=== PATIENT | female | born 1940 | race Caucasian/White ===

== ENCOUNTER 2020-10-31 02:38 | Inpatient (IN) | payer MEDICAID ==
[2020-10-31] VITALS (17 sets, daily range): BP systolic 90–184; BP diastolic 30–138
[~2020-10-31] VITALS: Ht 142.2 cm; Wt 69.9 kg
[2020-10-31] MEDS ORDERED: ONDANSETRON HCL 4MG/2ML INJ IV STA (02:50)
[2020-10-31] MEDS ORDERED: ALBUTEROL (0.083%) 2.5MG/3ML NEB HHN STA (02:50)
[2020-10-31] MEDS ORDERED: IPRATROPIUM BROMIDE (0.02%) 0.5MG/2.5ML NEB HHN STA (02:50)
[2020-10-31] MEDS ORDERED: AMIODARONE HCL 150 MG in DEXT 5% WATER 100 ML IV ONE (03:00)
[2020-10-31] MEDS ORDERED: NITROGLYCERIN OINT 1GM/INCH UDPKT TD ONE (03:00)
[2020-10-31] MEDS ORDERED: FUROSEMIDE 40MG/4ML VIAL IV ONE (03:00)
[2020-10-31] MEDS ORDERED: AMIODARONE HCL 900 MG in DEXT 5% WATER 500 ML IV ONE (03:00)
[2020-10-31 03:29] LABS: HEMATOCRIT. 40.1 % (36.0-48.0); HEMOGLOBIN. 12.5 g/dL (12.0-16.0); MEAN CORPUSCULAR HEMOGLOBIN 24.3 pg (28.0-32.0); PLATELET 237 x1000/uL (130-400); RED BLOOD CELL COUNT 5.14 mill/uL (4.2-5.4)
[2020-10-31 03:35] LABS: INR 1.1; PROTHROMBIN TIME 12.2 sec (9.6-11.0)
[2020-10-31 03:41] LABS: CHLORIDE 106 mEq/L (98-107)
[2020-10-31 03:47] LABS: BG CARBOXYHEMOGLOBIN 0.6 % (0.5-1.5); BG DEOXYHEMOGLOBIN 1.4 % (0.0-5.0); BG FRACTION INSPIRED OXYGEN 50; BG HCO3 ACT 18.3 mmol/L (22.0-26.0); BG METHEMOGLOBIN 0.3 % (0.0-1.5); BG OXYGEN SATURATION 98.6 % (92.0-98.5); BG OXYHEMOGLOBIN 97.7 % (94.0-97.0); BG PCO2 28.8 mmHg (35.0-45.0); BG PO2 216.8 mmHg (75.0-100.0); BG SAMPLE SITE RIGHT RADIAL; BG TOTAL HEMOGLOBIN 11.8 g/dL (12.0-18.0); BG VENT MODE MASK - BIPAP
[2020-10-31 05:03] LABS: PLATELET ESTIMATE NORMAL
[2020-10-31] MEDS ORDERED: ONDANSETRON HCL 4MG/2ML INJ IV PRN (08:15)
[2020-10-31] MEDS ORDERED: ACETAMINOPHEN 325MG TABLET PO PRN (08:15)
[2020-10-31] MEDS: FUROSEMIDE 40MG/4ML VIAL IVP SCH (09:00)
[2020-10-31] MEDS: ENOXAPARIN 100MG/ML SYR SUBCUT SCH ×2 (11:49→22:53)
[2020-10-31 14:57] LABS: CHLORIDE 107 mEq/L (98-107)
[2020-10-31 15:07] LABS: T4 FREE 1.25 ng/dL (0.76-1.46)
[2020-10-31] MEDS ORDERED: AMIODARONE HCL 900 MG in DEXT 5% WATER 482 ML IV PRN (17:30)
[2020-10-31] MEDS ORDERED: HYDRALAZINE 20MG/ML VIAL IV PRN (22:30)
[2020-10-31 23:50] LABS: CLARITY URINE CLOUDY (CLEAR); COLOR URINE YELLOW (YELLOW); KETONES URINE NEGATIVE (NEGATIVE); LEUKOCYTE ESTERASE URINE 1+ (NEGATIVE); NITRITE URINE NEGATIVE (NEGATIVE); OCCULT BLOOD URINE TRACE (NEGATIVE); PH URINE 5.5 (4.5-8.0); PROTEIN URINE 1+ (NEGATIVE); SPECIFIC GRAVITY URINE 1.019 (1.005-1.030)
[2020-11-01] VITALS (26 sets, daily range): BP systolic 72–177; BP diastolic 35–129
[2020-11-01] MEDS: LORAZEPAM 2MG/ML CPJ IV PRN (06:20)
[2020-11-01 07:37] LABS: HEMATOCRIT. 31.4 % (36.0-48.0); MEAN CORPUSCULAR HEMOGLOBIN 24.5 pg (28.0-32.0); MEAN CORPUSCULAR VOLUME 76.6 fL (81.0-99.0); MEAN PLATELET VOLUME 8.9 fl (7.4-10.4); PLATELET 200 x1000/uL (130-400); RED CELL DISTRIBUTION WIDTH 24.1 % (11.6-14.6)
[2020-11-01] MEDS ORDERED: IPRATROPIUM BROMIDE (0.02%) 0.5MG/2.5ML NEB HHN PRN (07:45)
[2020-11-01 08:35] LABS: CHLORIDE 111 mEq/L (98-107)
[2020-11-01] MEDS: METOPROLOL TARTRATE 50MG TABLET PO SCH ×2 (09:00→21:00)
[2020-11-01] MEDS: FUROSEMIDE 40MG/4ML VIAL IVP SCH (09:03)
[2020-11-01] MEDS: AMLODIPINE 10MG TABLET PO SCH (09:05)
[2020-11-01] MEDS: CEFEPIME 2,000 MG in DEXT 5% WATER 100 ML IV SCH ×2 (09:15→20:45)
[2020-11-01 13:50] LABS: PLATELET ESTIMATE NORMAL
[2020-11-01] MEDS: ENOXAPARIN 100MG/ML SYR SUBCUT SCH ×2 (15:03→23:13)
[2020-11-01] MEDS ORDERED: LORAZEPAM 2MG/ML CPJ IV PRN (20:15)
[2020-11-01] MEDS: ATORVASTATIN CALCIUM 20MG TABLET PO SCH (21:00)
[2020-11-01] MEDS: IPRATROPIUM BROMIDE (0.02%) 0.5MG/2.5ML NEB HHN SCH (21:30)
[2020-11-02] VITALS (17 sets, daily range): BP systolic 100–164; BP diastolic 47–93
[2020-11-02] MEDS: IPRATROPIUM BROMIDE (0.02%) 0.5MG/2.5ML NEB HHN SCH ×4 (01:24→20:11)
[2020-11-02 05:41] LABS: CHLORIDE 106 mEq/L (98-107)
[2020-11-02 05:51] LABS: HEMATOCRIT. 34.4 % (36.0-48.0); HEMOGLOBIN. 11.1 g/dL (12.0-16.0); MEAN CORPUSCULAR HEMOGLOBIN 24.8 pg (28.0-32.0); MEAN PLATELET VOLUME 9.3 fl (7.4-10.4); PLATELET 206 x1000/uL (130-400); RED BLOOD CELL COUNT 4.46 mill/uL (4.2-5.4); RED CELL DISTRIBUTION WIDTH 23.5 % (11.6-14.6)
[2020-11-02] MEDS: METOPROLOL TARTRATE 50MG TABLET PO SCH ×2 (09:00→21:28)
[2020-11-02] MEDS: AMLODIPINE 10MG TABLET PO SCH (09:06)
[2020-11-02] MEDS: CEFEPIME 2,000 MG in DEXT 5% WATER 100 ML IV SCH ×2 (09:06→22:21)
[2020-11-02] MEDS: FUROSEMIDE 40MG/4ML VIAL IVP SCH (09:06)
[2020-11-02] MEDS: ENOXAPARIN 100MG/ML SYR SUBCUT SCH (11:37)
[2020-11-02] MEDS ORDERED: REGADENOSON 0.4 MG/5 ML IV SCH (12:00)
[2020-11-02 12:13] LABS: BG CARBOXYHEMOGLOBIN 1.3 % (0.5-1.5); BG DEOXYHEMOGLOBIN 7.9 % (0.0-5.0); BG FRACTION INSPIRED OXYGEN 21; BG HCO3 ACT 23.8 mmol/L (22.0-26.0); BG METHEMOGLOBIN 0.3 % (0.0-1.5); BG OXYHEMOGLOBIN 90.5 % (94.0-97.0); BG PCO2 40.1 mmHg (35.0-45.0); BG PH 7.392 (7.350-7.450); BG PO2 65.1 mmHg (75.0-100.0); BG SAMPLE SITE RIGHT RADIAL; BG TOTAL HEMOGLOBIN 11.1 g/dL (12.0-18.0); BG VENT MODE ROOM AIR
[2020-11-02] MEDS: AMIODARONE HCL 200 MG TABLET PO SCH (13:09)
[2020-11-02] MEDS: ASPIRIN 81MG TABLET PO SCH (13:10)
[2020-11-02 13:27] LABS: PLATELET ESTIMATE NORMAL
[2020-11-02] MEDS: ATORVASTATIN CALCIUM 20MG TABLET PO SCH (21:28)
[2020-11-03] VITALS: BP 105/44
[2020-11-03] MEDS: IPRATROPIUM BROMIDE (0.02%) 0.5MG/2.5ML NEB HHN SCH ×4 (01:40→21:28)
[2020-11-03 04:00] VITALS: BP 119/61
[2020-11-03 08:00] VITALS: BP 129/52
[2020-11-03 08:09] LABS: BASOPHILS % 0.2 % (0.0-2.0); EOSINOPHILS % 0.7 % (0.0-5.0); HEMATOCRIT. 33.1 % (36.0-48.0); HEMOGLOBIN. 10.7 g/dL (12.0-16.0); LYMPHOCYTES % 8.5 % (20.0-50.0); MEAN CORPUSCULAR VOLUME 77.3 fL (81.0-99.0); MEAN PLATELET VOLUME 9.3 fl (7.4-10.4); MONOCYTES % 8.3 % (2.0-8.0); NEUTROPHILS % 82.3 % (40.0-76.0); PLATELET 226 x1000/uL (130-400); RED BLOOD CELL COUNT 4.29 mill/uL (4.2-5.4); RED CELL DISTRIBUTION WIDTH 22.9 % (11.6-14.6)
[2020-11-03 08:29] LABS: CHLORIDE 104 mEq/L (98-107)
[2020-11-03] MEDS ORDERED: ENOXAPARIN 40MG/0.4ML SYR SUBCUT SCH (09:00)
[2020-11-03] MEDS: CEFEPIME 2,000 MG in DEXT 5% WATER 100 ML IV SCH ×2 (09:00→20:55)
[2020-11-03] MEDS ORDERED: REGADENOSON 0.4 MG/5 ML IV ONE (10:15)
[2020-11-03] MEDS: METOPROLOL TARTRATE 50MG TABLET PO SCH (12:59)
[2020-11-03] MEDS: AMIODARONE HCL 200 MG TABLET PO SCH (12:59)
[2020-11-03] MEDS: FUROSEMIDE 40MG/4ML VIAL IVP SCH (12:59)
[2020-11-03] MEDS: ASPIRIN 81MG TABLET PO SCH (12:59)
[2020-11-03] MEDS: AMLODIPINE 10MG TABLET PO SCH (12:59)
[2020-11-03] MEDS: APIXABAN 5 MG TABLET PO SCH (17:00)
[2020-11-03 20:00] VITALS: BP 140/63
[2020-11-03] MEDS: ATORVASTATIN CALCIUM 20MG TABLET PO SCH (20:54)
[2020-11-03] MEDS: METOPROLOL TARTRATE 25MG TABLET PO SCH (20:55)
[2020-11-03] MEDS ORDERED: NA PHOS,M-B/NA PHOS,DI-BA ENEMA 118ML PR PRN (22:45)
[2020-11-04] VITALS: BP 126/35
[2020-11-04] MEDS: LORAZEPAM 2MG/ML CPJ IV PRN ×3 (01:08→21:13)
[2020-11-04] MEDS: IPRATROPIUM BROMIDE (0.02%) 0.5MG/2.5ML NEB HHN SCH ×4 (03:05→21:54)
[2020-11-04 04:00] VITALS: BP 118/57
[2020-11-04 06:51] LABS: BASOPHILS % 0.3 % (0.0-2.0); HEMATOCRIT. 31.5 % (36.0-48.0); HEMOGLOBIN. 10.1 g/dL (12.0-16.0); LYMPHOCYTES % 11.6 % (20.0-50.0); MEAN CORPUSCULAR HEMOGLOBIN 24.8 pg (28.0-32.0); MEAN CORPUSCULAR VOLUME 77.7 fL (81.0-99.0); MEAN PLATELET VOLUME 8.4 fl (7.4-10.4); MONOCYTES % 11.2 % (2.0-8.0); NEUTROPHILS % 75.9 % (40.0-76.0); PLATELET 211 x1000/uL (130-400); RED BLOOD CELL COUNT 4.06 mill/uL (4.2-5.4); RED CELL DISTRIBUTION WIDTH 22.7 % (11.6-14.6)
[2020-11-04 07:22] LABS: CHLORIDE 109 mEq/L (98-107)
[2020-11-04 08:00] VITALS: BP 123/51
[2020-11-04] MEDS: METOPROLOL TARTRATE 25MG TABLET PO SCH ×2 (11:01→21:04)
[2020-11-04] MEDS: FUROSEMIDE 40MG/4ML VIAL IVP SCH (11:01)
[2020-11-04] MEDS: AMIODARONE HCL 200 MG TABLET PO SCH (11:01)
[2020-11-04] MEDS: DOCUSATE SODIUM 250MG CAPSULE PO SCH ×2 (11:01→17:09)
[2020-11-04] MEDS: CEFEPIME 2,000 MG in DEXT 5% WATER 100 ML IV SCH (11:01)
[2020-11-04] MEDS: ASPIRIN 81MG TABLET PO SCH (11:01)
[2020-11-04] MEDS: AMLODIPINE 10MG TABLET PO SCH (11:02)
[2020-11-04] MEDS: APIXABAN 5 MG TABLET PO SCH ×2 (11:02→17:09)
[2020-11-04 12:12] VITALS: BP 110/49
[2020-11-04 16:00] VITALS: BP 118/59
[2020-11-04 20:32] VITALS: BP 131/63
[2020-11-04] MEDS: CEFTRIAXONE 1,000 MG in DEXTROSE 5% WATER 50 ML IV SCH (21:01)
[2020-11-04] MEDS: ATORVASTATIN CALCIUM 20MG TABLET PO SCH (21:02)
[2020-11-05] VITALS: BP 146/78
[2020-11-05] MEDS: IPRATROPIUM BROMIDE (0.02%) 0.5MG/2.5ML NEB HHN SCH ×4 (03:43→21:08)
[2020-11-05 04:00] VITALS: BP 136/64
[2020-11-05 07:50] VITALS: BP 162/76
[2020-11-05 08:16] LABS: BASOPHILS % 0.3 % (0.0-2.0); EOSINOPHILS % 1.7 % (0.0-5.0); HEMATOCRIT. 34.3 % (36.0-48.0); HEMOGLOBIN. 10.7 g/dL (12.0-16.0); LYMPHOCYTES % 12.4 % (20.0-50.0); MEAN CORPUSCULAR HEMOGLOBIN 24.5 pg (28.0-32.0); MEAN CORPUSCULAR VOLUME 78.8 fL (81.0-99.0); MEAN PLATELET VOLUME 8.5 fl (7.4-10.4); MONOCYTES % 9.1 % (2.0-8.0); NEUTROPHILS % 76.5 % (40.0-76.0); PLATELET 225 x1000/uL (130-400); RED BLOOD CELL COUNT 4.36 mill/uL (4.2-5.4); RED CELL DISTRIBUTION WIDTH 22.2 % (11.6-14.6)
[2020-11-05 08:57] LABS: CHLORIDE 109 mEq/L (98-107)
[2020-11-05] MEDS: ASPIRIN 81MG TABLET PO SCH (09:04)
[2020-11-05] MEDS: FUROSEMIDE 40MG/4ML VIAL IVP SCH (09:04)
[2020-11-05] MEDS: DOCUSATE SODIUM 250MG CAPSULE PO SCH ×2 (09:04→17:49)
[2020-11-05] MEDS: APIXABAN 5 MG TABLET PO SCH ×2 (09:04→17:49)
[2020-11-05] MEDS: METOPROLOL TARTRATE 25MG TABLET PO SCH ×2 (09:04→21:00)
[2020-11-05] MEDS: AMIODARONE HCL 200 MG TABLET PO SCH (09:04)
[2020-11-05] MEDS: AMLODIPINE 10MG TABLET PO SCH (09:04)
[2020-11-05 12:12] VITALS: BP 100/39
[2020-11-05 16:37] VITALS: BP 128/56
[2020-11-05 20:00] VITALS: BP 103/55
[2020-11-05] MEDS: CEFTRIAXONE 1,000 MG in DEXTROSE 5% WATER 50 ML IV SCH (21:17)
[2020-11-05] MEDS: ATORVASTATIN CALCIUM 20MG TABLET PO SCH (21:17)
[2020-11-06 00:15] VITALS: BP 128/52
[2020-11-06] MEDS: IPRATROPIUM BROMIDE (0.02%) 0.5MG/2.5ML NEB HHN SCH ×3 (02:49→14:18)
[2020-11-06 04:25] VITALS: BP 124/49
[2020-11-06 06:49] LABS: BASOPHILS % 0.6 % (0.0-2.0); EOSINOPHILS % 2.1 % (0.0-5.0); HEMATOCRIT. 34.5 % (36.0-48.0); HEMOGLOBIN. 10.9 g/dL (12.0-16.0); MEAN CORPUSCULAR HEMOGLOBIN 24.5 pg (28.0-32.0); MEAN CORPUSCULAR VOLUME 77.4 fL (81.0-99.0); MEAN PLATELET VOLUME 8.6 fl (7.4-10.4); MONOCYTES % 8.5 % (2.0-8.0); NEUTROPHILS % 76.8 % (40.0-76.0); PLATELET 267 x1000/uL (130-400); RED BLOOD CELL COUNT 4.45 mill/uL (4.2-5.4); RED CELL DISTRIBUTION WIDTH 22.2 % (11.6-14.6)
[2020-11-06 06:57] LABS: CHLORIDE 106 mEq/L (98-107)
[2020-11-06 08:00] VITALS: BP 129/50
[2020-11-06] MEDS: ASPIRIN 81MG TABLET PO SCH (10:37)
[2020-11-06] MEDS: AMIODARONE HCL 200 MG TABLET PO SCH (10:37)
[2020-11-06] MEDS: DOCUSATE SODIUM 250MG CAPSULE PO SCH ×2 (10:37→16:58)
[2020-11-06] MEDS: AMLODIPINE 10MG TABLET PO SCH (10:38)
[2020-11-06] MEDS: APIXABAN 5 MG TABLET PO SCH ×2 (10:38→16:58)
[2020-11-06] MEDS: FUROSEMIDE 40MG/4ML VIAL IVP SCH (10:38)
[2020-11-06] MEDS: METOPROLOL TARTRATE 25MG TABLET PO SCH (10:39)
[2020-11-06 12:00] VITALS: BP 123/48
[2020-11-06 13:19] VITALS: BP 123/48
[2020-11-06 16:00] VITALS: BP 140/67
== END 2020-11-06 17:07 | DRG 720 ==
LOC: ER 02:38 → EDBEDREQ 02:57 → 5EST 04:57 → EDBEDREQSVC 05:05 → EDBEDREQ 05:05 → EDBEDREQTM 05:05 → ENRESERV 08:06 → 5EST 21:00 → 6WST 11-02 15:53
PROVIDERS: ADMIT Internal Medicine; ATTEND Internal Medicine
PROC: 5A09357 Assistance with Respiratory Ventilation, Less than 24 Consecutive Hours, Continuous Positive Airway Pressure (ICD-10-PCS; principal; 2020-10-31)
DX: A41.51 Sepsis due to Escherichia coli [E. coli] (principal); R65.20 Severe sepsis without septic shock; J96.01 Acute respiratory failure with hypoxia; E43 Unspecified severe protein-calorie malnutrition; E66.01 Morbid (severe) obesity due to excess calories; I49.01 Ventricular fibrillation; E87.2 Acidosis; I11.0 Hypertensive heart disease with heart failure; D72.825 Bandemia; E78.5 Hyperlipidemia, unspecified; I50.41 Acute combined systolic (congestive) and diastolic (congestive) heart failure; Z20.822 Contact with and (suspected) exposure to COVID-19; I48.20 Chronic atrial fibrillation, unspecified; N39.0 Urinary tract infection, site not specified; Z79.01 Long term (current) use of anticoagulants; Z68.34 Body mass index [BMI] 34.0-34.9, adult; I25.2 Old myocardial infarction
CPT/HCPCS: 36415; 36600; 71045; 76770; 78452; 78582; 80048; 80053; 80061; 81003; 82375; 82805; 82962; 83605; 83735; 83880; 84100; 84439; 84443; 84481; 84484; 85025; 85379; 87077; 87186; 87426; 93005; 93017; 93306; 93970; 94640; 94660; 97110; 97162; 97166; 97530; 99291; A9500; C1893; J0282; J0360; J0692; J0696; J1650; J1940; J2060; J2405; J2785; J7040; J7060